=== PATIENT | male | born 1975 | race African-American/Black ===

== ENCOUNTER 2019-03-11 05:47 | Emergency (ER) | payer OTHER ==
[2019-03-11] MEDS ORDERED: ASPIRIN 81 MG TABLET, CHEWABLE PO ONE (07:35)
[2019-03-11 08:02] LABS: ABSOLUTE LYMPHOCYTES (AUTO) 1.3 10^3/uL (0.5-4.7); ABSOLUTE MONOCYTES (AUTO) 0.4 10^3/uL (0.1-1.4); ABSOLUTE NEUT (AUTO) 3.2 10^3/uL (1.7-8.2); BASOPHILS % (AUTO) 0.7 % (0-2); EOSINOPHILS % (AUTO) 0.9 % (0-6); HEMATOCRIT 41.8 % (37.9-51.0); HEMOGLOBIN 13.6 g/dL (13.5-17.0); LYMPHOCYTES % (AUTO) 25.9 % (13-45); MEAN CORPUSCULAR HEMOGLOBIN 27.6 pg (27.0-33.4); MEAN CORPUSCULAR HGB CONC 32.6 g/dL (32.0-36.0); MEAN CORPUSCULAR VOLUME 85 fl (80-97); MONOCYTES % (AUTO) 8.4 % (3-13); PLATELET COUNT 198 10^3/uL (150-450); RED BLOOD COUNT 4.95 10^6/uL (4.35-5.55); RED CELL DISTRIBUTION WIDTH 13.4 % (11.5-14.0); SEGMENTED NEUTROPHILS % (AUTO) 64.1 % (42-78); TOTAL CELLS COUNTED % (AUTO) 100 %; WHITE BLOOD COUNT 4.9 10^3/uL (4.0-10.5)
[2019-03-11 08:20] LABS: ALANINE AMINOTRANSFERASE 20 U/L (21-72); ALBUMIN 4.1 g/dL (3.5-5.0); ALKALINE PHOSPHATASE 53 U/L (38-126); ANION GAP 6 (5-19); ASPARTATE AMINO TRANSFERASE 19 U/L (17-59); BILIRUBIN,DIRECT 0.2 mg/dL (0.0-0.4); BILIRUBIN,TOTAL 0.6 mg/dL (0.2-1.3); BLOOD UREA NITROGEN 17 mg/dL (7-20); CALCIUM 9.5 mg/dL (8.4-10.2); CARBON DIOXIDE 31 mmol/L (22-30); CHLORIDE 104 mmol/L (98-107); CREATINE KINASE 84 U/L (55-170); GLUCOSE 81 mg/dL (75-110); POTASSIUM 4.5 mmol/L (3.6-5.0); SODIUM 141.2 mmol/L (137-145); TOTAL PROTEIN 6.7 g/dL (6.3-8.2)
[2019-03-11 08:30] LABS: CREATINE KINASE MB 0.27 ng/mL (<4.55)
[2019-03-11 08:31] LABS: TROPONIN I < 0.012 ng/mL
--- NOTE | 2019-03-11 08:42 | ER Document Report ---
ED General - General Chief Complaint: Chest Tightness Stated Complaint: CHEST DISCOMFORT Time Seen by Provider: 03/11/19 08:09 Notes: Patient is a 43-year-old male presents to the emergency department with a chief complaint of numbness and chest discomfort. Patient states that around 430 this morning he was attempting to fall asleep when he developed a numbness in his throat that woke him up. Patient states that the numbness started to go down his entire body. Patient states at that time he did develop a sensation in his chest that felt like his heart was pounding. Patient states that the pounding of his heart lasted about 1 hour. Patient states he did not feel like he was going to pass out or did pass out. Patient states he did have similar symptoms back in August where he did follow-up with cardiology. Patient reports that he had an echocardiogram, and had never heard of the results. Patient denies recreational drug use or cigarette smoking. Patient denies recent illness. Patient denies nausea vomiting or diarrhea. Patient reports that his resting heart rate is normally in the low 50s as he is active and runs 4 to 6 miles per week or more. Patient states that his this time he feels as normal. Patient states that when he did have a similar episode back in August he was having a lot of anxiety at that time due to a toxic relationship at work. Patient states although he is not feeling necessarily anxious at this time he does have a lot going on at work and with a new duty station. Patient had been up all night in the emergency department with his who reports was a patient here. TRAVEL OUTSIDE OF THE [place] IN LAST 30 DAYS: No - Related Data Allergies/Adverse Reactions: No Known Allergies Allergy (Unverified 03/11/19 08:04) Past Medical History - General Information source: Patient - Social History Smoking Status: Never Smoker Cigarette use (# per day): No Chew tobacco use (# tins/day): No Frequency of alcohol use: Occasional Drug Abuse: None Lives with: Spouse/Significant other Family History: None Patient has suicidal ideation: No Patient has homicidal ideation: No - Past Medical History Cardiac Medical History: Reports: None Renal/ Medical History: Denies: Hx Peritoneal Dialysis Past Surgical History: Reports: Hx Genitourinary Surgery - Vasectomy Review of Systems - Review of Systems Constitutional: No symptoms reported EENT: No symptoms reported Cardiovascular: See HPI Respiratory: No symptoms reported Gastrointestinal: No symptoms reported Genitourinary: No symptoms reported Male Genitourinary: No symptoms reported Musculoskeletal: No symptoms reported Skin: No symptoms reported Hematologic/Lymphatic: No symptoms reported Neurological/Psychological: No symptoms reported Physical Exam - Vital signs Vitals: Temp Pulse Resp BP Pulse Ox 97.6 F 67 18 136/81 H 96 03/11/19 06:00 03/11/19 06:00 03/11/19 06:00 03/11/19 06:00 03/11/19 06:00 Interpretation: Normal - Notes Notes: GENERAL: Well-appearing, well-nourished and in no acute distress. HEAD: Atraumatic, normocephalic. EYES: Pupils equal round and reactive to light, extraocular movements intact, sclera anicteric, conjunctiva are normal. ENT: TMs normal, nares patent, oropharynx clear without exudates. Moist mucous membranes. NECK: Normal range of motion, supple without lymphadenopathy or JVD. LUNGS: Breath sounds clear to auscultation bilaterally and equal. No wheezes rales or rhonchi. HEART: Bradycardiac regular rhythm without murmurs, rubs or gallops. ABDOMEN: Soft, nontender, normoactive bowel sounds. No guarding, no rebound. No masses appreciated. BACK: No cervical, thoracic, lumbar midline tenderness. No saddle anesthesia, normal distal neurovascular exam. GENITOURINARY: Deferred. EXTREMITIES: Normal range of motion, no pitting or edema. No clubbing or cyanosis. NEUROLOGICAL: Cranial nerves II through XII grossly intact. Normal speech, normal gait. PSYCH: Normal mood, normal affect. SKIN: Warm, Dry, normal turgor, no rashes or lesions noted. Course - Re-evaluation Re-evalutation: 03/11/19 08:42 Upon initial assessment patient is resting comfortably on stretcher and in no acute distress. Patient states that the numbness and the pounding of his chest have subsided and are not present at this time. Patient heart score is 0. 03/11/19 09:40 Patient resting comfortably and sleeping on his back. Patient easy to arouse and currently denies numbness, chest palpitations or chest pain. Patient states that he has seen mental health in his primary multiple times for similar s ymptoms and was told he had anxiety. Patient did state when he lays on his back he feels a tickling from his uvula. I did investigate his uvula which is not swollen or edematous but does appear elongated but midline. Patient's airway is patent and there is no swelling to the tonsils or erythema. States he feels like when he lays on his back his uvula tickles the back of his throat which then causes a uncomfortable feeling that he believes causes anxiety. Patient states this is happened multiple times. I do not believe that there is airway compromise. Informed patient to follow-up with his primary care physician and to avoid sleeping on his back as it seems like this aggravates his symptoms. Patient states he feels much better when laying on his left side or his right side as he does not have symptoms of this. I do not believe his symptoms are cardiac in nature. His EKG, chest x-ray and laboratory studies were benign. I did discuss this with the patient and he agrees with discharge plan and will follow up with his PCP at [place]. - Vital Signs Vital signs: Temp Pulse Resp BP Pulse Ox 97.6 F 50 L 16 125/89 H 99 03/11/19 06:00 03/11/19 10:00 03/11/19 10:00 03/11/19 10:00 03/11/19 10:00 - Laboratory Result Diagrams: 03/11/19 07:50 03/11/19 07:50 Laboratory results interpreted by me: 03/11/19 07:50 Carbon Dioxide 31 H ALT 20 L - EKG Interpretation by Me Additional EKG results interpreted by me: 03/11/19 09:31 Patient's EKG shows a sinus rhythm with a rate of 62. NE interval is 200, QT is 388 and QTC is 394. She has a normal axis deviation. There are no ST segment c hanges noted or in consecutive leads. Discharge - Discharge Clinical Impression: Chest pain, atypical, Throat discomfort Condition: Stable Disposition: HOME, SELF-CARE Additional Instructions: Today you were seen in the emergency department for "chest pounding. "An uncomfortable sensation in your throat. Your EKG, lab work, x-ray and physical examination were benign. This could be associated with anxiety you have had in the past with these symptoms. Please follow-up with your primary care physician or seek medical attention in the emergency department for worsening pain, passing out, lightheadedness, difficulty breathing or swallowing or any other concerns concerning signs or symptoms.
--- NOTE | 2019-03-11 08:45 | RADIOLOGY REPORT (SQ) ---
EXAM DESCRIPTION: CHEST SINGLE VIEW COMPLETED DATE/TIME: 03/11/2019 7:59 am REASON FOR STUDY: chest pain COMPARISON: None. NUMBER OF VIEWS: One view. TECHNIQUE: Single frontal radiographic view of the chest acquired. LIMITATIONS: None. FINDINGS: LUNGS AND PLEURA: No opacities, masses or pneumothorax. No pleural effusion. MEDIASTINUM AND HILAR STRUCTURES: No masses. Contour normal. HEART AND VASCULAR STRUCTURES: Heart normal in size. Normal vasculature. BONES: No acute findings. HARDWARE: None in the chest. OTHER: No other significant finding. IMPRESSION: NO SIGNIFICANT RADIOGRAPHIC FINDING IN THE CHEST. TECHNICAL DOCUMENTATION: JOB ID: [id number] @[employer]- All Rights Reserved Reading location - IP/workstation name: [email or web address]
[2019-03-11 10:03] VITALS: BP 125/89
--- NOTE | 2019-03-11 11:59 | EKG REPORT ---
SEVERITY:- NORMAL ECG - SINUS RHYTHM : Confirmed by: Ga Saldaña MD 11-Mar-2019 11:58:17
== END 2019-03-11 10:17 | disposition home or self-care (01) ==
LOC: ER 05:47 → EDBD 05:47 → ER 10:17
DX: R07.89 Other chest pain (principal); R07.0 Pain in throat
CPT/HCPCS: 36415; 71045; 80053; 82550; 82553; 84484; 85025; 93005; 93010; 99284